=== PATIENT | male | born 1960 | race Caucasian/White ===

== ENCOUNTER 2022-04-12 09:55 | Emergency (ER) | payer OTHER ==
[~2022-04-12] VITALS: Ht 182.9 cm; Wt 93.2 kg
[2022-04-12] MEDS ORDERED: HYDROCHLOROTHIA1 T15 PO (10:17)
[2022-04-12] MEDS ORDERED: GLUCOPHAGE PO (10:18)
[2022-04-12] MEDS ORDERED: FLUTICASON0.05 MG/AC NS (10:19)
[2022-04-12] MEDS ORDERED: LIPITOR 40MG TA40 MG PO (10:19)
[2022-04-12] MEDS ORDERED: PROSCAR PO (10:20)
[2022-04-12] MEDS ORDERED: GOOD NEIGHBOR100 M2 PO (10:20)
[2022-04-12 12:28] LABS: BASO # 0.03 K/mm3 (0.02-0.10); EOS % 0.8 % (0.0-4.0); HEMATOCRIT 41.7 % (42.0-52.0); HEMOGLOBIN 13.7 g/dL (13.5-18.0); LYMPH# 2.47 K/mm3 (1.50-4.00); MEAN CELL VOLUME 91 fl (78-100); MEAN CORPUSCULAR HEMOGLOBIN 30 pg (27-31); MEAN CORPUSCULAR HGB CONC 33 g/dL (33-37); MEAN PLATELET VOLUME 9.7 fl (7.4-10.4); NEU # 9.18 K/mm3 (1.40-6.50); PLATELET COUNT 249 K/mm3 (130-400); RED CELL DISTRIBUTION WIDTH 13.5 % (11.5-14.5); WHITE BLOOD COUNT 12.9 K/mm3 (4.8-10.8)
[2022-04-12 12:34] LABS: ALBUMIN 4.1 g/dL (3.4-4.8)
[2022-04-12 12:35] LABS: POTASSIUM 4.9 mmol/L (3.5-5.1)
[2022-04-12 12:36] LABS: CALCIUM 9.5 mg/dL (8.3-10.5)
[2022-04-12 12:37] LABS: TOTAL PROTEIN 7.5 g/dL (6.2-8.1)
[2022-04-12 12:39] LABS: TOTAL BILIRUBIN 0.7 mg/dL (0.2-1.2)
[2022-04-12 13:10] LABS: URINE APPEARANCE CLEAR; URINE COLOR YELLOW
[2022-04-12 13:11] LABS: PH-URINE 6.5 (5.0 - 8.0); URINE BILIRUBIN NEGATIVE (NEGATIVE); URINE BLOOD NEGATIVE (NEGATIVE); URINE GLUCOSE NEGATIVE (NEGATIVE); URINE KETONE NEGATIVE (NEGATIVE); URINE LEUKOCYTE ESTERASE NEGATIVE (NEGATIVE); URINE MUCUS PRESENT (NOT PRESENT); URINE NITRATE NEGATIVE (NEGATIVE); URINE PROTEIN(semi-quant) NEGATIVE (NEGATIVE); URINE UROBILINOGEN NORMAL (NORMAL)
[2022-04-12] MEDS ORDERED: FLOMAX0.4 MG PO (14:36)
[2022-04-12 14:59] VITALS: BP 150/86
== END 2022-04-12 14:59 | disposition home or self-care (01) ==
LOC: ED 09:55
PROVIDERS: Family Medicine
DX: N20.0 Calculus of kidney (principal); D72.829 Elevated white blood cell count, unspecified; R79.89 Other specified abnormal findings of blood chemistry
CPT/HCPCS: J7030

== ENCOUNTER → 2022-06-02 | Outpatient (CLI) | payer OTHER ==
[~2022-06-02] MED LIST: FLOMAX0.4 MG PO; FLUTICASON0.05 MG/AC NS; GLUCOPHAGE PO; GOOD NEIGHBOR100 M2 PO; HYDROCHLOROTHIA1 T15 PO; LIPITOR 40MG TA40 MG PO; PROSCAR PO
== END ==
LOC: RAD 07:22
DX: N20.1 Calculus of ureter (principal); N20.0 Calculus of kidney; K57.30 Diverticulosis of large intestine without perforation or abscess without bleeding

== ENCOUNTER 2024-04-28 20:15 | Emergency (ER) | payer OTHER ==
[~2024-04-28] VITALS: Ht 182.9 cm; Wt 95.5 kg
[2024-04-28 20:27] VITALS: BP 118/87
[2024-04-28] MEDS ORDERED: Tdap Vaccine 0.5 ML SYRINGE IM ONE (20:45)
[2024-04-28] MEDS ORDERED: AMOXICILLIN AND1 TA2 PO (20:59)
[2024-04-28] MEDS ORDERED: Amoxicillin/Clavulanate K+ 875/125 MG TAB PO ONE (21:00)
== END 2024-04-28 21:26 | disposition home or self-care (01) ==
LOC: ED 20:15
DX: S61.452A Open bite of left hand, initial encounter (principal); Z85.820 Personal history of malignant melanoma of skin; Z23 Encounter for immunization; Z79.01 Long term (current) use of anticoagulants; W54.0XXA Bitten by dog, initial encounter; Y93.89 Activity, other specified
CPT/HCPCS: 90715